=== PATIENT | male | born 1950 | race Caucasian/White ===

== ENCOUNTER → 2021-03-09 | Outpatient (CLI) | payer OTHER ==
--- NOTE | 2021-03-09 11:26 | REP ---
INDICATION: SMOKER COMPARISON: None. TECHNIQUE: Axial noncontrast images from the thoracic inlet to the upper abdomen using low-dose lung screening technique (LDCT). FINDINGS: COPD/emphysematous changes are appreciated. No acute consolidation, nodule or mass. No effusion. No pneumothorax. Tracheobronchial tree is patent. IMPRESSION: Lung-RADS category 1. Emphysematous changes. No suspicious nodule or mass. Management recommendations include annual low-dose CT surveillance. <Electronically signed by Chon Jaquez > 03/09/21 1128
== END ==
LOC: M RAD 10:56
PROVIDERS: ATTEND Nurse Practitioner Primary Care
DX: Z12.2 Encounter for screening for malignant neoplasm of respiratory organs (principal); J43.8 Other emphysema; F17.210 Nicotine dependence, cigarettes, uncomplicated

== ENCOUNTER → 2023-09-20 | Outpatient (CLI) | payer OTHER, MEDICARE | LOC: M RAD 13:10 | PROVIDERS: ATTEND Nurse Practitioner Family | DX: Z12.2 Encounter for screening for malignant neoplasm of respiratory organs (principal); Z87.891 Personal history of nicotine dependence ==

== ENCOUNTER 2025-01-03 15:34 | Inpatient (IN) | payer OTHER ==
[~2025-01-03] VITALS: Ht 172.7 cm; Wt 54.0 kg
[2025-01-03 17:18] LABS: BASO # 0.1 10^3/uL (0.0-0.2); BASO % 0.3 % (0.0-1.0); HEMATOCRIT 35.2 % (42.0-52.0); HEMOGLOBIN 12.8 g/dl (13.5-17.5); LYMPH % 4.1 % (24.0-44.0); MEAN CORPUSCULAR HEMOGLOBIN 33.5 pg (27.0-33.0); MEAN CORPUSCULAR HGB CONC 36.4 g/dl (32.0-36.5); MEAN CORPUSCULAR VOLUME 92.1 fl (80.0-96.0); MONO # 1.6 10^3/uL (0.0-0.8); MONO % 6.5 % (2.0-8.0); NEUTROPHILS # 20.8 10^3/uL (1.5-8.5); NEUTROPHILS % 86.6 % (36.0-66.0); PLATELET COUNT, AUTOMATED 393 10^3/uL (150-450); RED BLOOD COUNT 3.82 10^6/uL (4.30-6.10)
[2025-01-03 17:49] LABS: ALBUMIN 2.9 G/DL (3.2-5.2); ALKALINE PHOSPHATASE 96 U/L (40-129); ALT/SGPT 60 U/L (7.0-40); AST/SGOT 46 U/L (<34); BILIRUBIN,TOTAL 0.3 MG/DL (0.3-1.2); BLOOD UREA NITROGEN 97 MG/DL (9-23); CALCIUM LEVEL 8.6 MG/DL (8.3-10.6); CARBON DIOXIDE LEVEL 16 MMOL/L (20-31); CHLORIDE LEVEL 92 MMOL/L (98-107); GLOMERULAR FILTRATION RATE 15.3 (>42); GLUCOSE, FASTING 132 MG/DL (74-106); POTASSIUM SERUM 4.9 MMOL/L (3.5-5.1); SODIUM LEVEL 119 MMOL/L (136-145); TOTAL PROTEIN 7.2 G/DL (5.7-8.2)
[2025-01-03 19:14] LABS: CK-MB VALUE MASS < 1.0 NG/ML (<3.6)
[2025-01-03 19:16] LABS: CPK CREATINE PHOSPHOKINASE 31 U/L (46-171); MB/CK RELATIVE INDEX 3.22 (< OR =4)
[2025-01-03 19:18] LABS: THYROID STIMULATING HORMONE 2.582 uIU/ML (0.55-4.78)
[2025-01-03 19:19] LABS: FREE T4 1.07 NG/DL (0.89-1.76)
[2025-01-03 19:24] LABS: OSMOLALITY SERUM 288 MOSM/KG (280-301)
[2025-01-03] MEDS: NS (Normal Saline) 0.9% 1,000 ML IV SCH ×2 (19:53→23:16)
[2025-01-03 20:11] LABS: VENOUS BASE EXCESS -7.8 (-2.0-2.0); VENOUS HCO3 19.1 MMOL/L (23.0-27.0); VENOUS O2 SATURATION 32.1 % (60.0-80.0); VENOUS PARTIAL PRESSURE CO2 44.1 mmHg (38.0-50.0); VENOUS PARTIAL PRESSURE O2 23.5 mmHg (30.0-50.0); VENOUS PH 7.255 UNITS (7.330-7.430); VENOUS STANDARD HCO3 16.9 MMOL/L; VENOUS TOTAL CO2 20.5 MMOL/L (24.0-28.0)
[2025-01-03 20:47] LABS: CK-MB VALUE MASS < 1.0 NG/ML (<3.6)
[2025-01-03 20:48] LABS: CPK CREATINE PHOSPHOKINASE 41 U/L (46-171); MB/CK RELATIVE INDEX 2.43 (< OR =4)
[2025-01-03 21:05] LABS: KETONE, URINE AUTO RFX NEGATIVE (NEGATIVE); MUCUS, URINE RFX LARGE (NEGATIVE); NITRITE, URINE AUTO RFX NEGATIVE (NEGATIVE); RBC, URINE AUTO RFX 23 /HPF (0-3); SQUAM EPITHELIAL CELL UR AURFX 0 /HPF (0-6)
[2025-01-03 21:08] LABS: LEUKOCYTE ESTERASE UR AUTO RFX 3+ (NEGATIVE); WBC, URINE AUTO RFX TNTC /HPF (0-3)
[2025-01-03 21:26] LABS: CREATININE,RANDOM URINE 118.2 MG/DL
[2025-01-03] MEDS ORDERED: FURO20TA2 PO (21:55)
[2025-01-03] MEDS ORDERED: D 1010002 PO (21:55)
[2025-01-03] MEDS ORDERED: LISI40TA4 PO (21:55)
[2025-01-03] MEDS ORDERED: ASPI81TA26 PO (21:55)
[2025-01-03] MEDS ORDERED: ATOR1TAB21 PO (21:55)
[2025-01-03] MEDS ORDERED: HOME MED LIST COMPLETE! XX SCH (21:55)
[2025-01-03] MEDS ORDERED: THERTAB52 PO (21:55)
[2025-01-03] MEDS ORDERED: AMLO1TAB25 PO (21:55)
[2025-01-03] MEDS ORDERED: ATEN50TA2 PO (21:55)
[2025-01-03] MEDS ORDERED: ACETAMINOPHEN 325 MG TAB PO PRN (22:45)
[2025-01-03] MEDS ORDERED: MOM 30ML SUSPENSION UDC PO PRN (22:45)
[2025-01-03] MEDS: cefTRIAXone SOD 1 GM in DEXTROSE 5% (D5W) ADV/MINI-BAG 50 ML IV ONE (23:16)
[2025-01-04] MEDS: HEPARIN SOD (PORCINE) 5000UNITS/ML 1ML VIAL/SYRINGE SC SCH (06:13)
[2025-01-04 06:52] LABS: HEMATOCRIT 34.2 % (42.0-52.0); HEMOGLOBIN 12.6 g/dl (13.5-17.5); MEAN CORPUSCULAR HEMOGLOBIN 33.4 pg (27.0-33.0); MEAN CORPUSCULAR VOLUME 90.7 fl (80.0-96.0); PLATELET COUNT, AUTOMATED 392 10^3/uL (150-450); RED BLOOD COUNT 3.77 10^6/uL (4.30-6.10); WHITE BLOOD COUNT 21.7 10^3/uL (4.0-10.0)
[2025-01-04 07:16] LABS: MEAN CORPUSCULAR HGB CONC 36.8 g/dl (32.0-36.5)
[2025-01-04 07:23] LABS: ALBUMIN 2.6 G/DL (3.2-5.2); BILIRUBIN,TOTAL 0.2 MG/DL (0.3-1.2); CALCIUM LEVEL 8.2 MG/DL (8.3-10.6); CREATININE FOR GFR 1.89 MG/DL (0.70-1.30); GLOMERULAR FILTRATION RATE 36.6 (>42); POTASSIUM SERUM 4.5 MMOL/L (3.5-5.1); TOTAL PROTEIN 6.7 G/DL (5.7-8.2)
[2025-01-04 07:53] LABS: C REACTIVE PROTEIN QUANTITATIV 16.92 MG/DL (<1.0)
[2025-01-04] MEDS: D5W 1000ML IV STA (08:04)
[2025-01-04 08:08] LABS: PHOSPHORUS LEVEL 5.1 MG/DL (2.4-5.1)
[2025-01-04 09:30] VITALS: BP 113/71; TEMP 98.7; O2SAT 97
[2025-01-04] MEDS: ASPIRIN 81MG ENTERIC TABLET PO SCH (10:16)
[2025-01-04] MEDS: DOCUSATE SODIUM 100MG CAPSULE PO SCH (10:17)
[2025-01-04] MEDS: ATORVASTATIN 20 MG TAB PO SCH (10:17)
[2025-01-04] MEDS: D5W 1,000 ML IV SCH (10:23)
[2025-01-04 12:00] VITALS: BP 110/58; TEMP 99.1; O2SAT 98
[2025-01-04 13:12] LABS: CALCIUM LEVEL 8.1 MG/DL (8.3-10.6); CREATININE FOR GFR 1.58 MG/DL (0.70-1.30); GLOMERULAR FILTRATION RATE 45.3 (>42); POTASSIUM SERUM 4.7 MMOL/L (3.5-5.1)
[2025-01-04 13:45] LABS: CHLORIDE,RANDOM URINE 48 MMOL/L; SODIUM,RANDOM URINE 63 MMOL/L
[2025-01-04 16:00] VITALS: BP 108/51; TEMP 100.7; O2SAT 96
[2025-01-04 16:49] VITALS: TEMP 103.1
[2025-01-04] MEDS: ACETAMINOPHEN 325 MG TAB PO PRN (17:54)
[2025-01-04 18:49] LABS: CALCIUM LEVEL 7.7 MG/DL (8.3-10.6); CREATININE FOR GFR 1.36 MG/DL (0.70-1.30); GLOMERULAR FILTRATION RATE 54.3 (>42); POTASSIUM SERUM 4.8 MMOL/L (3.5-5.1)
[2025-01-04 18:54] VITALS: TEMP 102.3
[2025-01-04] MEDS: atenoloL 50 MG TAB PO SCH (21:00)
[2025-01-04] MEDS ORDERED: amLODIPine 5 MG TAB PO SCH (21:00)
[2025-01-04] MEDS: TAMSULOSIN 0.4 MG CAP PO SCH (21:04)
[2025-01-04] MEDS: cefTRIAXone SOD 1 GM in DEXTROSE 5% (D5W) ADV/MINI-BAG 50 ML IV SCH (21:04)
[2025-01-04] MEDS: FINASTERIDE 5MG TAB PO SCH (21:04)
[2025-01-05] VITALS: BP 122/61; TEMP 98.5; O2SAT 97
[2025-01-05 04:27] LABS: BASO % 0.2 % (0.0-1.0); EOS % 0.1 % (0.0-3.0); HEMATOCRIT 32.8 % (42.0-52.0); HEMOGLOBIN 11.8 g/dl (13.5-17.5); LYMPH # 0.9 10^3/uL (1.5-5.0); LYMPH % 5.2 % (24.0-44.0); MEAN CORPUSCULAR HEMOGLOBIN 32.5 pg (27.0-33.0); MEAN CORPUSCULAR VOLUME 90.4 fl (80.0-96.0); MONO # 1.8 10^3/uL (0.0-0.8); MONO % 9.9 % (2.0-8.0); NEUTROPHILS # 14.6 10^3/uL (1.5-8.5); NEUTROPHILS % 82.1 % (36.0-66.0); PLATELET COUNT, AUTOMATED 397 10^3/uL (150-450); RED BLOOD COUNT 3.63 10^6/uL (4.30-6.10); WHITE BLOOD COUNT 17.8 10^3/uL (4.0-10.0)
[2025-01-05 04:56] LABS: ALBUMIN 2.4 G/DL (3.2-5.2); BILIRUBIN,TOTAL 0.3 MG/DL (0.3-1.2); CALCIUM LEVEL 7.8 MG/DL (8.3-10.6); CREATININE FOR GFR 1.07 MG/DL (0.70-1.30); GLOMERULAR FILTRATION RATE 72.4 (>42); MAGNESIUM LEVEL 2.3 MG/DL (1.8-2.4); POTASSIUM SERUM 4.3 MMOL/L (3.5-5.1); TOTAL PROTEIN 6.3 G/DL (5.7-8.2)
[2025-01-05 08:00] VITALS: BP 108/56; TEMP 98.8; O2SAT 95
[2025-01-05 15:31] LABS: PROCALCITONIN 0.73 ng/ml
[2025-01-05 16:22] LABS: CALCIUM LEVEL 7.7 MG/DL (8.3-10.6); CREATININE FOR GFR 1.03 MG/DL (0.70-1.30); GLOMERULAR FILTRATION RATE 75.8 (>42); POTASSIUM SERUM 4.2 MMOL/L (3.5-5.1)
[2025-01-05 19:40] LABS: CALCIUM LEVEL 8.1 MG/DL (8.3-10.6); CREATININE FOR GFR 1.01 MG/DL (0.70-1.30); GLOMERULAR FILTRATION RATE 77.6 (>42); POTASSIUM SERUM 4.2 MMOL/L (3.5-5.1)
[2025-01-05 20:07] VITALS: BP 109/58; TEMP 97.7; O2SAT 96
[2025-01-05 20:28] VITALS: BP 124/56
[2025-01-06 05:17] VITALS: BP 94/49; TEMP 97.3; O2SAT 96
[2025-01-06 06:11] LABS: BASO # 0.1 10^3/uL (0.0-0.2); BASO % 0.4 % (0.0-1.0); EOS % 0.2 % (0.0-3.0); HEMATOCRIT 34.3 % (42.0-52.0); LYMPH # 1.2 10^3/uL (1.5-5.0); LYMPH % 7.3 % (24.0-44.0); MEAN CORPUSCULAR HEMOGLOBIN 32.4 pg (27.0-33.0); MEAN CORPUSCULAR VOLUME 92.7 fl (80.0-96.0); MONO # 1.9 10^3/uL (0.0-0.8); MONO % 11.8 % (2.0-8.0); NEUTROPHILS # 12.5 10^3/uL (1.5-8.5); NEUTROPHILS % 77.1 % (36.0-66.0); PLATELET COUNT, AUTOMATED 462 10^3/uL (150-450); WHITE BLOOD COUNT 16.2 10^3/uL (4.0-10.0)
[2025-01-06 06:34] LABS: ALBUMIN 2.3 G/DL (3.2-5.2); BILIRUBIN,TOTAL 0.3 MG/DL (0.3-1.2); CALCIUM LEVEL 8.2 MG/DL (8.3-10.6); CREATININE FOR GFR 1.08 MG/DL (0.70-1.30); GLOMERULAR FILTRATION RATE 71.6 (>42); MAGNESIUM LEVEL 2.3 MG/DL (1.8-2.4); TOTAL PROTEIN 6.5 G/DL (5.7-8.2)
[2025-01-06 12:55] VITALS: BP 119/59
[2025-01-06] MEDS ORDERED: FINA5TAB2 PO (14:04)
[2025-01-06] MEDS ORDERED: TAMS-18 PO (14:04)
[2025-01-06] MEDS ORDERED: CEFD1CAP9 PO (14:04)
[2025-01-06] MEDS ORDERED: ATEN25TA PO (14:04)
== END 2025-01-06 15:50 | disposition home or self-care (01) | DRG 683 ==
LOC: M ED 15:34 → M ED INP 22:45 → M ICU 01-04 09:31 → M MS5PR 01-05 11:05
PROVIDERS: ADMIT Family Medicine; ATTEND Internal Medicine
DX: N17.9 Acute kidney failure, unspecified (principal); N39.0 Urinary tract infection, site not specified; E87.20 Acidosis, unspecified; E87.1 Hypo-osmolality and hyponatremia; E78.5 Hyperlipidemia, unspecified; I10 Essential (primary) hypertension; R74.01 Elevation of levels of liver transaminase levels; R33.9 Retention of urine, unspecified; N13.30 Unspecified hydronephrosis; Z87.891 Personal history of nicotine dependence; Z79.899 Other long term (current) drug therapy; Z79.82 Long term (current) use of aspirin

== ENCOUNTER → 2025-01-22 | Outpatient (CLI) | payer OTHER, MEDICARE ==
[~2025-01-22] MED LIST: AMLO1TAB25 PO; ASPI81TA26 PO; ATEN25TA PO; ATEN50TA2 PO; ATOR1TAB21 PO; CEFD1CAP9 PO; D 1010002 PO; FINA5TAB2 PO; FURO20TA2 PO; LISI40TA4 PO; TAMS-18 PO; THERTAB52 PO
== END ==
LOC: M PLALAB 10:57
PROVIDERS: ATTEND Physician Assistant
DX: Z12.5 Encounter for screening for malignant neoplasm of prostate (principal)
CPT/HCPCS: 36415; G0103

== ENCOUNTER → 2025-05-26 | Outpatient (CLI) | payer OTHER, MEDICARE ==
[~2025-05-26] MED LIST changes: +LISI40TA10 PO; -LISI40TA4 PO
[2025-05-26 13:00] LABS: PLATELET COUNT, AUTOMATED 468 10^3/uL (150-450)
[2025-05-26 13:27] LABS: PSA SCREENING 0.86 NG/ML (< 4.00)
[2025-05-26 13:30] LABS: CALCIUM LEVEL 9.0 MG/DL (8.3-10.6); CARBON DIOXIDE LEVEL 29.0 MMOL/L (20-31); CHLORIDE LEVEL 102.0 MMOL/L (98-107); CREATININE FOR GFR 0.91 MG/DL (0.70-1.30); GLOMERULAR FILTRATION RATE 87.9 (>42); POTASSIUM SERUM 5.0 MMOL/L (3.5-5.1); SODIUM LEVEL 136.0 MMOL/L (136-145)
== END ==
LOC: M WUC 08:55
PROVIDERS: ATTEND Urology
DX: R33.9 Retention of urine, unspecified (principal); Z12.5 Encounter for screening for malignant neoplasm of prostate
CPT/HCPCS: 36415; 80048; 85027; G0103

== ENCOUNTER → 2025-08-04 | Day surgery (SDC) | payer OTHER, MEDICARE ==
[~2025-08-04] VITALS: Ht 172.7 cm; Wt 63.5 kg
[~2025-08-04] MED LIST changes: +LR 1,000 ML IV SCH; +TAMS1CAP17 PO; +ceFAZolin SOD 2 GM IV ONCE IV ONE
[2025-08-04 09:16] VITALS: BP 146/82; TEMP 96.9; O2SAT 97
== END | disposition home or self-care (01) ==
LOC: M SDC 08:09
PROVIDERS: ATTEND Urology
DX: R33.9 Retention of urine, unspecified (principal); Z53.09 Procedure and treatment not carried out because of other contraindication